=== PATIENT | male | born 1975 | race Asian ===

== ENCOUNTER 2017-01-19 04:17 | Emergency (ER) | payer BC ==
[~2017-01-19] VITALS: Ht 170.2 cm; Wt 100.0 kg
[2017-01-19 05:08] LABS: BASOPHILS % (AUTO) 0.4 % (0.0-2.0); EOSINOPHILS % (AUTO) 1.8 % (1.0-6.0); HEMOGLOBIN 15.7 g/dL (13.5-17.5); LYMPHOCYTES # (AUTO) 1.5 K/uL (1.0-4.8); LYMPHOCYTES % (AUTO) 16.9 % (22.0-44.0); MEAN CORPUSCULAR HEMOGLOBIN 26.9 pg (26.0-34.0); MEAN CORPUSCULAR HGB CONC 34.2 G/dL (31.0-37.0); MEAN CORPUSCULAR VOLUME 79 fL (80-100); MONOCYTES # (AUTO) 0.3 K/uL (0.1-1.0); MONOCYTES % (AUTO) 3.6 % (2.0-9.0); NEUTROPHILS # (AUTO) 6.7 K/uL (1.8-7.7); NEUTROPHILS % (AUTO) 77.3 % (40.0-70.0); PLATELET COUNT (AUTO) 259 K/uL (150-450); RED BLOOD CELL COUNT(AUTO) 5.85 MIL/uL (4.50-5.90); RED CELL DISTRIBUTION WIDTH 13.6 % (11.5-14.5); WHITE BLOOD COUNT (AUTO) 8.7 K/uL (4.5-11.0)
[2017-01-19 05:11] LABS: CALCIUM, TOTAL 9.3 mg/dL (8.8-10.5); CREATININE 1.53 mg/dL (0.60-1.30); POTASSIUM 3.9 mmol/L (3.5-5.1)
[2017-01-19 05:17] LABS: ALBUMIN 4.4 g/dL (3.4-5.0); BILIRUBIN,TOTAL 0.4 mg/dL (0.1-1.0); TOTAL PROTEIN, SERUM 7.9 g/dL (6.4-8.2)
[2017-01-19] MEDS ORDERED: SODIUM CHLORIDE 0.9% 500 ML IV ONE (05:45)
[2017-01-19] MEDS ORDERED: HydrALAZINE HCL 20 MG/ML VIAL IVP ONE (05:45)
[2017-01-19] MEDS ORDERED: KETOROLAC TROMETHAMINE 30 MG/ML VIAL IVP ONE (06:15)
[2017-01-19 06:55] VITALS: BP 164/102
[2017-01-19] MEDS ORDERED: SODIUM CHLORIDE 0.9% 1,000 ML IV ONE (07:00)
== END 2017-01-19 07:42 | disposition home or self-care (01) ==
LOC: EMS 04:18
DX: K80.20 Calculus of gallbladder without cholecystitis without obstruction (principal); I10 Essential (primary) hypertension
CPT/HCPCS: 36415; 71010; 76705; 80053; 81002; 83690; 84484; 85025; 93005; 96361; 96374; 96375; 99285; J0360; J1885; J7040; 81025

== ENCOUNTER 2022-11-04 12:16 | Emergency (ER) | payer BC ==
[~2022-11-04] VITALS: Ht 167.6 cm; Wt 88.6 kg
[2022-11-04 12:20] VITALS: BP 159/97; PULSE 88; RESP 18; TEMP 98.2
[2022-11-04] MEDS ORDERED: AMLO-258 PO (12:25)
[2022-11-04] MEDS ORDERED: IBUPROFEN 600 MG TABLET PO ONE (12:45)
[2022-11-04] MEDS ORDERED: LIDOCAINE 1% 20 ML VIAL ID ONE (12:45)
[2022-11-04] MEDS ORDERED: AMOX1TAB16 PO (14:55)
[2022-11-04] MEDS ORDERED: BACITRACIN 0.9 GM PACKET OINTMENT TP ONE (15:00)
== END 2022-11-04 15:16 | disposition home or self-care (01) ==
LOC: EMS 12:27
DX: S61.214A Laceration without foreign body of right ring finger without damage to nail, initial encounter (principal); S61.012A Laceration without foreign body of left thumb without damage to nail, initial encounter; I10 Essential (primary) hypertension; W54.0XXA Bitten by dog, initial encounter; Y93.89 Activity, other specified; Y92.89 Other specified places as the place of occurrence of the external cause; Y99.8 Other external cause status
CPT/HCPCS: 99283; 12002; J3490